=== PATIENT | male | born 1950 | race Caucasian/White ===

== ENCOUNTER → 2016-10-13 | Outpatient (CLI) | payer OTHER ==
[~2016-10-13] VITALS: Ht 182.9 cm; Wt 88.2 kg
[~2016-10-13] MED LIST: AMLODIPINE BESYL5 MG PO; ATORVASTATIN CA10 MG PO; Aspirin E.C. PO; BACTRIM,SEPT1 TABLET PO; CELEBREX200 MG PO; CIPRO500 MG PO; LEVAQUIN750 MG PO; LOSARTAN POTASS25 MG PO; Lipitor PO; PROTONIX40 MG PO; Percocet 5/325,Endoc PO; UROGESIC BLUE PO; XANAX0.5 MG PO; Xanax PO; ZEGERID40 MG PO; Zegerid PO
[2016-10-13 14:51] LABS: HEMATOCRIT 32.7 % (38.0-50.0); MCV 105.8 FL (86-99)
[2016-10-13 15:10] LABS: INTER. NORMALIZED RATIO 1.1; PROTHROMBIN TIME 10.8 (9.2-11.2); PTT 24.3 (25-32)
== END | disposition home or self-care (01) ==
LOC: AMB 14:00
PROVIDERS: Internal Medicine Pulmonary Disease
DX: R91.8 Other nonspecific abnormal finding of lung field (principal); R59.0 Localized enlarged lymph nodes; Z87.891 Personal history of nicotine dependence; C67.9 Malignant neoplasm of bladder, unspecified; C68.0 Malignant neoplasm of urethra; D64.9 Anemia, unspecified; I10 Essential (primary) hypertension; K21.9 Gastro-esophageal reflux disease without esophagitis; Z82.49 Family history of ischemic heart disease and other diseases of the circulatory system; Z80.9 Family history of malignant neoplasm, unspecified
CPT/HCPCS: 85014; 85018; 85610; 85730; 87070; 87116; 87205; 87206; 88108; 88173; J0461; J2175; J2250; J2310; J3010

== ENCOUNTER 2016-11-10 09:02 | Day surgery (SDC) | payer OTHER ==
[~2016-11-10] VITALS: Ht 180.3 cm; Wt 86.1 kg
[~2016-11-10 09:02] MED LIST changes: +LOSARTAN POTASS50 MG PO
[2016-11-10 10:04] VITALS: BP 130/84
[2016-11-10 10:15] LABS: EOSINOPHIL (%) 0.8 % (0-5); HEMATOCRIT 35.2 % (38.0-50.0); IMMATURE GRANULOCYTE (%) 0.4 % (0.0-0.7); MCHC 33.5 G/DL (30.0-36.0); MCV 101.4 FL (86-99); MEAN PLAT.VOLUME 11.4 uM^3 (9.0-12.4); MONOCYTE (%) 14.6 % (3-12); MONOCYTE COUNT 0.4 K/uL (0-0.8); NEUTROPHIL (%) 46.3 % (45-76); NEUTROPHIL COUNT 1.2 K/uL (1.8-6.4); PLATELET COUNT 128 K/uL (156-360); RBC DIS.WIDTH-CV 14.8 % (11.8-14.6); RBC DIS.WIDTH-SD 53.5 % (39-53); RED BLOOD COUNT 3.47 M/uL (4.00-5.50); WHITE BLOOD COUNT 2.5 K/uL (4.1-10.2)
[2016-11-10 10:17] LABS: INTER. NORMALIZED RATIO 1.1; PROTHROMBIN TIME 11.1 (9.2-11.2); PTT 25.5 (25-32)
[2016-11-10 10:42] LABS: ALKALINE PHOSPHATASE 67 IU/L (3-129); ANION GAP 12 MEQ/L (2-14); CHLORIDE 103 MEQ/L (99-109); GFR ESTIMATE (CALCULATED) > 59 mL/min/; GLUCOSE 111 mg/dL (70-99); POTASSIUM 3.8 MEQ/L (3.7-5.4); SAMPLE HEMOLYSIS CHECK 0; SAMPLE ICTERIC CHECK 0; SAMPLE LIPEMIA CHECK 0; SODIUM 139 MEQ/L (136-147); TOTAL BILIRUBIN 0.7 MG/DL (0.0-1.0); UREA NITROGEN (BUN) 28 mg/dL (9-23)
[2016-11-10] MEDS ORDERED: HYDROCODON-ACE1 EAC7 PO (13:40)
[2016-11-10] MEDS ORDERED: COLACE100 MG PO (13:40)
[2016-11-10 14:11] VITALS: BP 127/78
[2016-11-10 15:06] VITALS: BP 119/75
== END 2016-11-10 15:13 | disposition home or self-care (01) ==
LOC: SDC 09:02
PROVIDERS: Thoracic Surgery (Cardiothoracic Vascular Surgery)
PROC: 0WBC4ZX Excision of Mediastinum, Percutaneous Endoscopic Approach, Diagnostic (ICD-10-PCS; principal; 2016-11-10)
DX: C67.9 Malignant neoplasm of bladder, unspecified (principal); C66.1 Malignant neoplasm of right ureter; C64.1 Malignant neoplasm of right kidney, except renal pelvis; C78.01 Secondary malignant neoplasm of right lung; K21.9 Gastro-esophageal reflux disease without esophagitis; I10 Essential (primary) hypertension; Z87.891 Personal history of nicotine dependence
CPT/HCPCS: 80053; 85025; 85610; 85730; 88305; 88312; J0330; J0690; J1100; J2405; J2710; J3010

== ENCOUNTER 2016-11-12 05:01 | Emergency (ER) | payer OTHER ==
[~2016-11-12] VITALS: Ht 180.3 cm; Wt 91.4 kg
[~2016-11-12 05:01] MED LIST changes: +COLACE100 MG PO; +HYDROCODON-ACE1 EAC7 PO
[2016-11-12 05:56] LABS: HEMATOCRIT 32.3 % (38.0-50.0); MCH 34.2 PG (29.0-34.0); MCHC 32.8 G/DL (30.0-36.0); MCV 104.2 FL (86-99); RBC DIS.WIDTH-CV 14.9 % (11.8-14.6); RBC DIS.WIDTH-SD 54.2 % (39-53)
[2016-11-12 06:01] LABS: MEAN PLAT.VOLUME 10.1 uM^3 (9.0-12.4); PLATELET COUNT 186 K/uL (156-360); WHITE BLOOD COUNT 3.3 K/uL (4.1-10.2)
[2016-11-12 06:14] LABS: CHLORIDE 106 mEq/L (99-109); POTASSIUM 3.8 mEq/L (3.7-5.4); SODIUM 140 mEq/L (136-147)
[2016-11-12 06:16] LABS: GLUCOSE 109 mg/dL (70-99)
[2016-11-12 06:18] LABS: ANION GAP 10 MEQ/L (2-14)
[2016-11-12 06:20] LABS: GFR ESTIMATE (CALCULATED) 54 mL/min/; TROP-I INTERPRETATION NEGATIVE; TROPONIN-I < 0.01 ng/mL (0.0-0.30)
[2016-11-12 06:21] LABS: UREA NITROGEN (BUN) 26 mg/dL (9-23)
[2016-11-12 08:03] LABS: D-DIMER ELISA 0.84 mg/L FEU (< 0.57)
[2016-11-12 12:10] VITALS: BP 114/80
== END 2016-11-12 12:11 | disposition home or self-care (01) ==
LOC: EME 05:01
DX: R00.2 Palpitations (principal); R00.0 Tachycardia, unspecified; Z98.890 Other specified postprocedural states; I10 Essential (primary) hypertension; Z87.891 Personal history of nicotine dependence
CPT/HCPCS: 71020; 71275; 80048; 84484; 85027; 85379; 93005; 99281; 99285; J7030

== ENCOUNTER 2016-12-10 06:29 | Inpatient (IN) | payer OTHER ==
[~2016-12-10] VITALS: Ht 182.9 cm; Wt 87.7 kg
[2016-12-10] VITALS (7 sets, daily range): BP systolic 109–155; BP diastolic 79–94
[~2016-12-10 06:29] MED LIST changes: +EPIPEN ADU0.3 MG/0.3 IM
[2016-12-10 07:56] LABS: EOSINOPHIL (%) 5.1 % (0-5); EOSINOPHIL COUNT 0.2 K/uL (0-0.3); HEMATOCRIT 34.9 % (38.0-50.0); IMMATURE GRANULOCYTE (%) 0.4 % (0.0-0.7); INSTRUMENT ABS NEUTROPHIL CT 2.9 K/uL; LYMPHOCYTE COUNT 1.1 K/uL (1.0-2.8); MCH 32.9 PG (29.0-34.0); MCHC 32.7 G/DL (30.0-36.0); MCV 100.9 FL (86-99); MEAN PLAT.VOLUME 10.4 uM^3 (9.0-12.4); MONOCYTE COUNT 0.5 K/uL (0-0.8); NEUTROPHIL COUNT 2.9 K/uL (1.8-6.4); RBC DIS.WIDTH-CV 14.2 % (11.8-14.6); RBC DIS.WIDTH-SD 52.1 % (39-53); RED BLOOD COUNT 3.46 M/uL (4.00-5.50); WHITE BLOOD COUNT 4.7 K/uL (4.1-10.2)
[2016-12-10 08:01] LABS: INTER. NORMALIZED RATIO 1.1; PROTHROMBIN TIME 11.1 (9.2-11.2)
[2016-12-10 08:10] LABS: PLATELET COUNT 150 K/uL (156-360)
[2016-12-10 08:28] LABS: ALKALINE PHOSPHATASE 51 IU/L (3-129); ANION GAP 11 MEQ/L (2-14); CHLORIDE 105 MEQ/L (99-109); GFR ESTIMATE (CALCULATED) > 59 mL/min/; GLUCOSE 113 mg/dL (70-99); SAMPLE HEMOLYSIS CHECK 0; SAMPLE ICTERIC CHECK 0; SAMPLE LIPEMIA CHECK 0; SODIUM 139 MEQ/L (136-147); TOTAL BILIRUBIN 0.9 MG/DL (0.0-1.0); UREA NITROGEN (BUN) 32 mg/dL (9-23)
[2016-12-10 17:09] LABS: METH RESISTANT S AUREUS PCR NEGATIVE (NEGATIVE)
[2016-12-10 17:10] LABS: PROBE CHECK PASS; SPECIMEN PROCESSING CONTROL PASS
[2016-12-11] VITALS (11 sets, daily range): BP systolic 91–137; BP diastolic 60–79
[2016-12-11 05:56] LABS: MCH 32.7 PG (29.0-34.0); MCHC 31.9 G/DL (30.0-36.0); MCV 102.3 FL (86-99); MEAN PLAT.VOLUME 10.2 uM^3 (9.0-12.4); PLATELET COUNT 152 K/uL (156-360); RBC DIS.WIDTH-CV 14.6 % (11.8-14.6); RBC DIS.WIDTH-SD 54.3 % (39-53); RED BLOOD COUNT 3.03 M/uL (4.00-5.50)
[2016-12-11 05:58] LABS: WHITE BLOOD COUNT 7.7 K/uL (4.1-10.2)
[2016-12-11 06:26] LABS: ANION GAP 8 MEQ/L (2-14); CHLORIDE 99 MEQ/L (99-109); GFR ESTIMATE (CALCULATED) > 59 mL/min/; GLUCOSE 109 mg/dL (70-99); POTASSIUM 4.5 MEQ/L (3.7-5.4); SAMPLE HEMOLYSIS CHECK 0; SAMPLE ICTERIC CHECK 0; SAMPLE LIPEMIA CHECK 0; SODIUM 133 MEQ/L (136-147); UREA NITROGEN (BUN) 19 mg/dL (9-23)
[2016-12-12] VITALS (7 sets, daily range): BP systolic 96–120; BP diastolic 67–79
[2016-12-12 06:24] LABS: HEMATOCRIT 32.6 % (38.0-50.0); MCH 32.6 PG (29.0-34.0); MCHC 32.2 G/DL (30.0-36.0); MCV 101.2 FL (86-99); MEAN PLAT.VOLUME 10.7 uM^3 (9.0-12.4); PLATELET COUNT 153 K/uL (156-360); RBC DIS.WIDTH-CV 14.4 % (11.8-14.6); RBC DIS.WIDTH-SD 53.7 % (39-53); RED BLOOD COUNT 3.22 M/uL (4.00-5.50)
[2016-12-12 07:27] LABS: ANION GAP 8 MEQ/L (2-14); CHLORIDE 100 MEQ/L (99-109); GFR ESTIMATE (CALCULATED) 58 mL/min/; GLUCOSE 92 mg/dL (70-99); POTASSIUM 4.2 MEQ/L (3.7-5.4); SAMPLE HEMOLYSIS CHECK 0; SAMPLE ICTERIC CHECK 0; SAMPLE LIPEMIA CHECK 0; SODIUM 135 MEQ/L (136-147); UREA NITROGEN (BUN) 19 mg/dL (9-23)
[2016-12-12 09:58] LABS: DIGOXIN 0.4 ng/mL (0.8-2.0)
[2016-12-13] VITALS: BP 96/62
[2016-12-13 04:00] VITALS: BP 109/64
[2016-12-13 08:00] VITALS: BP 113/70
[2016-12-13 12:00] VITALS: BP 108/67
[2016-12-13 16:00] VITALS: BP 98/61
[2016-12-13 20:00] VITALS: BP 107/70
[2016-12-14] VITALS (8 sets, daily range): BP systolic 102–121; BP diastolic 59–80
[2016-12-15] VITALS (12 sets, daily range): BP systolic 0–139; BP diastolic 0–88
[2016-12-16] VITALS: BP 137/77
[2016-12-16 05:30] VITALS: BP 130/87
[2016-12-16 07:25] LABS: ANION GAP 9 MEQ/L (2-14); CHLORIDE 104 MEQ/L (99-109); GFR ESTIMATE (CALCULATED) > 59 mL/min/; GLUCOSE 102 mg/dL (70-99); POTASSIUM 4.1 MEQ/L (3.7-5.4); SAMPLE HEMOLYSIS CHECK 0; SAMPLE ICTERIC CHECK 0; SAMPLE LIPEMIA CHECK 0; SODIUM 139 MEQ/L (136-147); UREA NITROGEN (BUN) 22 mg/dL (9-23)
[2016-12-16] MEDS ORDERED: ELIQUIS5 MG PO (15:20)
[2016-12-16] MEDS ORDERED: LOPRESSOR50 MG PO (15:20)
[2016-12-16] MEDS ORDERED: ENDOCET 5-3251 EACH PO (15:20)
== END 2016-12-16 19:15 | disposition home or self-care (01) | DRG 165 ==
LOC: 4WEST 06:29 → 2SOUTH 06:29 → EDSTATUS 09:23 → 2SOUTH 09:24 → SDC 13:31 → 2SOUTH 14:35 → 4WEST 15:21 → 4EAST 12-15 23:44
PROVIDERS: Internal Medicine Cardiovascular Disease; Thoracic Surgery (Cardiothoracic Vascular Surgery)
DX: C78.01 Secondary malignant neoplasm of right lung (principal); C67.9 Malignant neoplasm of bladder, unspecified; I48.0 Paroxysmal atrial fibrillation; I10 Essential (primary) hypertension; K21.9 Gastro-esophageal reflux disease without esophagitis; E78.5 Hyperlipidemia, unspecified; Z90.6 Acquired absence of other parts of urinary tract; Z90.5 Acquired absence of kidney; Z85.528 Personal history of other malignant neoplasm of kidney; Z87.891 Personal history of nicotine dependence
CPT/HCPCS: 71010; 71020; 80048; 80053; 80162; 83880; 85025; 85027; 85610; 86850; 86900; 86901; 86920; 87641; 88305; 88309; 88331; 88341 TC; 88342 TC; 93005; 93306; 94010; 94640; 94640 76; 94667; 94668; 97530 GO; 99202; J0330; J0690; J1160; J1170; J1644; J2250; J2405; J2795; J3010; J7050; J7120

== ENCOUNTER → 2018-02-17 | Day surgery (SDC) | payer OTHER ==
[~2018-02-17] VITALS: Ht 180.3 cm; Wt 86.2 kg
[~2018-02-17] MED LIST changes: +ELIQUIS5 MG PO; +ENDOCET 5-3251 EACH PO; +LABETALOL HCL200 MG PO; +LOPRESSOR50 MG PO; +MIRALAX119 GM PO; +SENNA8.6 MG PO; +VITAMIN D31000 UNIT PO
[2018-02-17 12:22] VITALS: BP 180/91
[2018-02-17 17:02] VITALS: BP 173/93
[2018-02-17 18:15] VITALS: BP 173/95
== END | disposition home or self-care (01) ==
LOC: SDC 11:28
DX: C67.9 Malignant neoplasm of bladder, unspecified (principal); C66.2 Malignant neoplasm of left ureter; N13.1 Hydronephrosis with ureteral stricture, not elsewhere classified; I10 Essential (primary) hypertension; K21.9 Gastro-esophageal reflux disease without esophagitis; D64.9 Anemia, unspecified; E78.00 Pure hypercholesterolemia, unspecified; Z90.5 Acquired absence of kidney; Z85.118 Personal history of other malignant neoplasm of bronchus and lung; Z87.891 Personal history of nicotine dependence
CPT/HCPCS: 88307; C1758; C1769; C2625; J0690; J1100; J1170; J1940; J2405; J3010